=== PATIENT | male | born 2000 | race Two or more races ===

== ENCOUNTER 2024-11-03 08:36 | Emergency (ER) | payer SELFPAY ==
[2024-11-03 08:46] VITALS: BP 139/82; PULSE 92; RESP 19; TEMP 36.8; O2SAT 99; BMI 23.8
--- NOTE | 2024-11-03 09:00 | XR_ITS ---
Examination: PA lateral chest 2 views TECHNIQUE: Upright PA lateral chest 2 views Exam date 9: November 03, 2024 0908 hours INDICATIONS: Vomiting beginning today. FINDINGS: Normal heart size No aspiration pneumonia The osseous structures are intact IMPRESSION: No aspiration pneumonia
--- NOTE | 2024-11-03 09:30 | PD.EDRME ---
Rapid Medical Screening Exam E Arrival date/time: 11/03/24 08:36 24-year-old male with no known medical history presents to the emergency room with a chief complaint of multiple episodes of vomiting blood. Patient states he vomited once this morning and it was yellow in every episode of vomiting after was bright red. I have greeted and performed a focused initial assessment of this patient. A comprehensive ED assessment and evaluation of the patient, analysis of all test results, and completion of the medical decision making process will be conducted by additional ED providers. Chief Complaint: Nausea/Vomiting/Diarrhea Time Seen by Provider: 11/03/24 09:06 Vital signs: Vital Signs Temperature 98.3 F 11/03/24 08:46 Pulse Rate 92 11/03/24 08:46 Respiratory Rate 19 11/03/24 08:46 Blood Pressure 139/82 H 11/03/24 08:46 Pulse Oximetry (%) 99 11/03/24 08:46 Oxygen Delivery Method Room Air 11/03/24 08:46 Vital signs reviewed by provider: Yes
[2024-11-03 10:15] LABS: Basophils % (Auto) 0 % (0-2.5); Eosinophils % (Auto) 0 % (0-10); Hematocrit 48.1 % (41.0-53.0); Hemoglobin 16.6 g/dL (13.5-16.0); Immature Granulocytes % (Auto) 0 % (0-0); Immature Granulocytes Auto 0.06 Thou/mm3 (0.00-0.00); Lymphocytes # (Auto) 0.7 Thou/mm3 (1.0-4.8); Lymphocytes % (Auto) 5 % (10-50); Mean Corpuscular HGB Conc 34.5 g/dl (31.0-37.0); Mean Corpuscular Hemoglobin 29.7 pg (25.0-35.0); Mean Corpuscular Volume 86 fL (80-100); Monocytes # (Auto) 0.3 Thou/mm3 (0.0-0.8); Monocytes % (Auto) 2 % (0-12); Neutrophils # (Auto) 12.5 Thou/mm3 (1.8-7.7); Neutrophils % (Auto) 92 % (37-80); Nucleated Red Blood Cell % 0 /100 WBC (0); Platelet Count 303 Thou/mm3 (140-440); RDW Standard Deviation 39.1 fL (35.1-43.9); Red Blood Count 5.59 Miln/mm3 (4.50-5.90); White Blood Count 13.6 Thou/mm3 (3.8-10.6)
[2024-11-03 10:34] LABS: Alanine Aminotransferase 14 U/L (10-49); Albumin, Serum 5.4 gm/dL (3.5-5.0); Albumin/Globulin Ratio 1.9 (1.2-2.2); Alkaline Phosphatase 93 U/L (46-116); Anion Gap 13 (7-16); Aspartate Amino Transferase 23 U/L (0-34); BUN/Creatinine Ratio 17 Ratio (12-20); Bilirubin,Total 0.8 mg/dL (0.3-1.2); Blood Urea Nitrogen 15 mg/dL (9-23); Calcium 10.1 mg/dL (8.3-10.6); Calcium (Corrected) 10.1 mg/dL (8.5-10.1); Carbon Dioxide 26.5 mMol/L (20.0-31.0); Chloride 103 mMol/L (98-107); Creatinine (Component) 0.9 mg/dL (0.6-1.3); Estimated Creatinine Clearance 105.1 mL/min (>60); Globulin 2.9 gm/dL (2.3-3.5); Glucose 91 mg/dL (74-106); Osmolality,Calculated 283 (275-295); Potassium 4.2 mMol/L (3.4-5.1); Sodium 142 mMol/L (136-145); Total Protein 8.3 gm/dL (5.7-8.2); eGFR > 60 See Note
[2024-11-03 14:32] VITALS: BP 130/86; PULSE 92; RESP 20; TEMP 36.8; O2SAT 98
--- NOTE | 2024-11-03 15:33 | PD.EDNV ---
Nausea/Vomit./Diarrhea-RME/HPI General Chief complaint: Nausea/Vomiting/Diarrhea Stated complaint: VOMITING DARK RED BLOOD, STARTED THIS AM Time Seen by Provider: 11/03/24 09:06 Arrival date/time: 11/03/24 08:36 24-year-old male with a history of chronic lower back pain reports with complaints of some mild abdominal discomfort and vomiting since this morning. Patient believes that he has eaten a spoiled hot dog that caused some pain in his stomach he vomited back up he noticed very small specks of blood that concerned him he denies any fever chills shortness of breath chest pain diarrhea constipation blood or mucus in stools dysuria urinary urgency frequency or hematuria. Patient says that he has not taken any medications for symptoms but he has noticed the symptoms have decreased significantly since vomiting the spoiled food Limitations: no limitations RME / HPI RME / HPI Narrative: 11/03/24 08:36 24-year-old male with no known medical history presents to the emergency room with a chief complaint of multiple episodes of vomiting blood. Patient states he vomited once this morning and it was yellow in every episode of vomiting after was bright red. I have greeted and performed a focused initial assessment of this patient. A comprehensive ED assessment and evaluation of the patient, analysis of all test results, and completion of the medical decision making process will be conducted by additional ED providers. Related Data Allergies Allergy/AdvReac Type Severity Reaction Status Date / Time amoxicillin Allergy Verified 11/03/24 08:40 Review of Systems Constitutional Constitutional: Denies chills, Denies fever(s) and Denies headache(s) ENT Ears, Nose, Mouth, and Throat: Denies dizziness and Denies headache(s) Cardiovascular Cardiovascular: Denies chest pain and Denies dyspnea Respiratory Respiratory: Denies cough and Denies dyspnea Gastrointestinal Gastrointestinal: Reports abdominal pain, Denies hematochezia, Denies loose stools, Denies melena, Reports nausea and Reports vomiting Genitourinary Genitourinary: Denies dysuria, Denies flank pain and Denies hematuria Musculoskeletal Musculoskeletal: Reports back pain and Denies myalgias Integumentary/Breasts Skin/Breast: Denies rash and Denies unusual bruising Neurologic Neurologic: Denies dizziness and Denies headache(s) Hematologic/Lymphatic Hematologic/Lymphatic: Denies easy bleeding and Denies easy bruising Past Medical History Social History SMOKING STATUS: Former smoker ED Exam General Limitations: Present no limitations General appearance: Present alert and in no apparent distress Head Head exam: Present atraumatic Eye Eye exam: Present normal appearance, PERRL and EOMI ENT ENT exam: Present normal exam, normal oropharynx and mucous membranes moist Neck Neck exam: Present normal inspection, full ROM and trachea midline Chest Chest inspection: Present normal inspection and symmetric chest wall rise Respiratory Respiratory exam: Present normal lung sounds bilaterally Cardiovascular Cardiovascular exam: Present regular rate, normal rhythm and normal heart sounds Abdominal Exam Abdominal exam: Present soft and normal bowel sounds Extremities Exam Extremities exam: Present normal inspection and full ROM Back Exam Back exam: Present normal inspection and full ROM Neurological Exam Neurological exam: Present alert, oriented X3 and CN II-XII intact Psychiatric Psychiatric exam: Present normal affect and normal mood Skin Skin exam: Present warm, dry, intact and normal color Course Course Course Narrative: 4-year-old male with history of chronic lower back pain reports with complaints of abdominal pain and vomiting blood. Patient's chest x-ray is negative for infiltrates or opacities CBC unremarkable CMP also unremarkable urine analysis indicative of some dehydration from vomiting but no evidence of an infection. Differential diagnosis includes food poisoning versus gastroenteritis versus viral syndrome. Patient is stable nontoxic-appearing with stable vital signs he reports improvement in the abdominal pain since being in the ER resting therefore he will be discharged home as his vitals are stable he is advised on hydration with water and other clear liquids and following up with his primary care provider in 3 days. Patient is also advised to return to emergency department if symptoms should not improve patient verbalized understanding Quality Measures none Orders Category Date Time Status XR chest 2V Stat Exams 11/03/24 09:00 Completed CBC Stat Lab 11/03/24 09:47 Completed CMP [Comprehensive Metabolic Panel] Stat Lab 11/03/24 09:47 Completed UA, C/S IF [Urinalysis, C/S if Indicated] Stat Lab 11/03/24 15:39 Completed Urine Culture Stat Lab 11/03/24 15:39 Received Vital Signs Vital signs: Vital Signs Temperature 98.3 F 11/03/24 08:46 Pulse Rate 92 11/03/24 08:46 Respiratory Rate 19 11/03/24 08:46 Blood Pressure 139/82 H 11/03/24 08:46 Pulse Oximetry (%) 99 11/03/24 08:46 Oxygen Delivery Method Room Air 11/03/24 08:46 Nausea/Vomiting/Diarrhea Patient data External records reviewed:: None Clinical information provided by:: patient Social determinants that could affect healthcare access:: none Patient has the following chronic illnesses:: Chronic back pain How is presenting disease/condition affected by chronic disease/condition?: no chronic disease Evaluation data The following diagnostics were reviewed and interpreted by me:: lab results and radiology exam(s) Lab and/or radiology exams considered but not ordered:: None Interpretation Summary: Urinalysis negative for evidence of infection chest x-ray is negative for evidence of infection labs unremarkable Medications / Prescriptions Medications / Prescriptions considered but not ordered:: None Medication administrations:: None Consultations Consultation(s) initiated? (list below): No Diagnosis Nausea Differential Diagnosis: food poisoning, gastroenteritis and dehydration Most likely diagnosis given after review of the tests above:: Viral gastroenteritis Admission Indicated Admission indicated?: not indicated Admission Request Was there a request for admission?: No Disposition Plan Disposition Plan: Discharge Discharge Attestation Discharge Attestation: The patient and all family members were given an opportunity to ask questions and understood the discharge instructions. Discharge instructions specifically effects, indications for sooner follow up or return to the emergency department, and the expected course of current diagnosis. Patient condition: Stable Discharge Plan Plan Patient Disposition: HOME (Self Care) Prescriptions/Referrals Referrals: No Primary/Family,Physician [Primary Care Provider] - In 1 week Problem List Clinical Impression: Viral gastroenteritis Patient/Caregiver Discharge Instructions Discharge Activity: activity as tolerated Education Materials: ED Food Poison Or Gastroenteritis Additional Instructions: Your symptoms are most likely caused by a stomach virus.? Hydrate well with liquids that you can see through with the exception of alcohol such as Gatorade, water, roel jennie, broths, popsicles, Jell-O etc., until the diarrhea and/or vomiting stops then you may increase to the BRAT (bananas, rice, applesauce, toast) diet while continuing liquid diet and then slowly working back to a normal diet however you should avoid foods such as dairy products, spicy foods, caffeine products, citrus products, or foods with sauces as this may cause more stomach upset. If diarrhea or vomiting is severe and uncontrolled you may try [id number] medications such as Maalox, Mylanta, Milk of Magnesia. Give a dose appropriate for age and weight and if symptoms does not improve in the next 3-5 days follow-up with primary care provider. If stomach pain worsens or you develop a fever and persistent vomiting go to the ER or call 911 Print Language: [place] Stand Alone Forms: Julia Award Info., Patient Portal Info Letter
[2024-11-03 15:50] LABS: Collection Type, Urine Clean Catch; Squamous Epithelial Cell,Urine 0 /hpf (0-5)
[2024-11-03 15:56] LABS: Bilirubin,Urine 2+ (Negative); Blood,Urine Trace-Intact (Negative); Clarity,Urine Clear (Clear/Hazy); Color,Urine Yellow (Lt Yel-Yel); Glucose, Urine Negative (Negative); Ketones,Urine 3+ (Negative); Leukocyte Esterase,Urine Negative (Negative); Nitrite,Urine Negative (Negative); Protein,Urine 1+ (Neg - Trace); Specific Gravity,Urine >= 1.030 (1.001-1.035)
[2024-11-03 16:21] LABS: Mucus,Urine 3+ /lpf; RBC,Urine 2 /hpf (0-3)
[2024-11-03 16:23] LABS: Bacteria,Urine 1+; WBC,Urine 3 /hpf (0-5)
[2024-11-03 16:24] LABS: Culture Indicated,Urine Yes
[2024-11-03 16:41] VITALS: BP 142/94; PULSE 75; RESP 17; TEMP 36.9; O2SAT 98
== END 2024-11-03 17:00 | disposition home or self-care (01) ==
PROVIDERS: Nurse Practitioner Family; Physician Assistant; Emergency Provider Emergency Medicine
DX: A08.4 Viral intestinal infection, unspecified (principal); Z87.891 Personal history of nicotine dependence
CPT/HCPCS: 36415; 71046; 80053; 81001; 85025; 87086; 99283